=== PATIENT | male | born 1960 | race Caucasian/White ===

== ENCOUNTER 2018-05-04 08:43 | Day surgery (SDC) | payer BC ==
[~2018-05-04] VITALS: Ht 188 cm; Wt 101.6 kg
[~2018-05-04 08:43] MED LIST: DIPH50 PO; ONDA8ODT MM; PRED20 PO; RANI150 PO; RXONDA4ODT MM
[2018-05-04] MEDS ORDERED: PRAV20 PO (09:27)
[2018-05-04] MEDS ORDERED: VALS80 PO (09:27)
== END 2018-05-04 11:56 | disposition home or self-care (01) ==
LOC: ORSCSDS 08:43
PROVIDERS: Student in an Organized Health Care Education/Training Program
PROC: 0SQQ0ZZ Repair Left Toe Phalangeal Joint, Open Approach (ICD-10-PCS; principal; 2018-05-04 10:00)
PROC: 0QBR0ZZ Excision of Left Toe Phalanx, Open Approach (ICD-10-PCS; principal; 2018-05-04 10:00)
DX: M20.42 Other hammer toe(s) (acquired), left foot (principal); M79.675 Pain in left toe(s); L84 Corns and callosities; M89.9 Disorder of bone, unspecified; I10 Essential (primary) hypertension; Z79.899 Other long term (current) drug therapy
CPT/HCPCS: J0690; J1100; J1885; J2250; J2405; J7120

== ENCOUNTER → 2018-06-23 | Outpatient (CLI) | payer BC ==
[~2018-06-23] MED LIST changes: +PRAV20 PO; +VALS80 PO
[2018-06-23 17:10] LABS: BASOPHILS ABSOLUTE AUTO 0.05 K/mm3 (0.00-0.23); BASOPHILS PERCENT AUTO 1 % (0-2); EOSINOPHILS ABSOLUTE AUTO 0.32 K/mm3 (0.00-0.68); EOSINOPHILS PERCENT AUTO 4 % (0-6); Hematocrit 45.6 % (37.0-53.0); Hemoglobin 15.6 g/dL (13.5-17.5); IMMATURE GRAN ABSOLUTE AUTO 0.03 K/mm3 (0.00-0.10); IMMATURE GRAN PERCENT AUTO 0 % (0-1); LYMPHOCYTES ABSOLUTE AUTO 1.99 K/mm3 (0.84-5.20); LYMPHOCYTES PERCENT AUTO 24 % (21-46); MONOCYTES ABSOLUTE AUTO 0.87 K/mm3 (0.16-1.47); MONOCYTES PERCENT AUTO 10 % (4-13); Mean Corpuscular HGB 29.4 pg (26.0-34.0); Mean Corpuscular HGB Conc 34.2 g/dL (31.5-36.5); Mean Corpuscular Volume 86 fL (80-100); Mean Platelet Volume 9.7 fL (9.1-12.4); NEUTROPHILS ABSOLUTE AUTO 5.13 K/mm3 (1.96-9.15); NEUTROPHILS PERCENT AUTO 61 % (41-73); Platelet Count 227 K/mm3 (150-400); RDW Coefficient Variation 13.2 % (11.7-14.2); RDW Standard Deviation 40.8 fL (35.1-46.3); Red Blood Cell Count 5.31 M/mm3 (4.30-5.90); White Blood Cell Count 8.39 K/mm3 (4.00-11.30)
[2018-06-23 17:18] LABS: Alanine Aminotransfer (ALT/SGP 40 U/L (12-78); Albumin/Globulin Ratio 1.1 (0.8-1.8); Alk Phos 58 U/L (40-126); Anion Gap 12 mmol/L (6-16); Aspartate Aminotrans (AST/SGOT 29 U/L (12-37); Bilirubin, Total 0.5 mg/dL (0.1-1.0); Blood Urea Nitrogen 22 mg/dL (8-24); Bun/Creatinine Ratio 18.6 (12.0-20.0); CO2, Blood 25 mmol/L (21-32); Calcium, Blood 9.1 mg/dL (8.5-10.1); Chloride, Blood 104 mmol/L (98-108); Creatinine, Blood 1.18 mg/dL (0.60-1.20); Globulin, Blood 3.7 g/dL (2.2-4.0); Glomerular Filtration Rate >60 (60-); Glucose, Blood 92 mg/dL (70-99); Potassium, Blood 3.9 mmol/L (3.5-5.5); Sodium, Blood 141 mmol/L (136-145); Total Protein, Blood 7.7 g/dL (6.4-8.2); Uric Acid, Blood 6.1 mg/dL (3.5-7.2)
== END | disposition home or self-care (01) ==
LOC: LAB EV 17:02 → LAB SHORT 17:02
PROVIDERS: Physician Assistant
DX: M79.675 Pain in left toe(s) (principal)
CPT/HCPCS: 80053; 84550; 85025; 85651; 86140

== ENCOUNTER 2019-11-19 16:28 | Observation (INO) | payer BC ==
[~2019-11-19] VITALS: Ht 188 cm; Wt 103.0 kg
[2019-11-19 18:36] LABS: BASOPHILS ABSOLUTE AUTO 0.02 K/mm3 (0.00-0.23); BASOPHILS PERCENT AUTO 0 % (0-2); EOSINOPHILS PERCENT AUTO 1 % (0-6); Hemoglobin 15.3 g/dL (13.5-17.5); IMMATURE GRAN ABSOLUTE AUTO 0.04 K/mm3 (0.00-0.10); IMMATURE GRAN PERCENT AUTO 0 % (0-1); LYMPHOCYTES ABSOLUTE AUTO 1.28 K/mm3 (0.84-5.20); LYMPHOCYTES PERCENT AUTO 12 % (21-46); MONOCYTES ABSOLUTE AUTO 1.28 K/mm3 (0.16-1.47); MONOCYTES PERCENT AUTO 12 % (4-13); Mean Corpuscular HGB 29.2 pg (26.0-34.0); Mean Corpuscular Volume 86 fL (80-100); Mean Platelet Volume 10.2 fL (9.1-12.4); NEUTROPHILS ABSOLUTE AUTO 8.36 K/mm3 (1.96-9.15); NEUTROPHILS PERCENT AUTO 75 % (41-73); Platelet Count 191 K/mm3 (150-400); RDW Coefficient Variation 12.5 % (11.7-14.2); RDW Standard Deviation 39.4 fL (35.1-46.3); Red Blood Cell Count 5.24 M/mm3 (4.30-5.90); White Blood Cell Count 11.08 K/mm3 (4.00-11.30)
[2019-11-19 18:48] LABS: Alanine Aminotransfer (ALT/SGP 33 U/L (12-78); Albumin, Blood 3.6 g/dL (3.4-5.0); Albumin/Globulin Ratio 0.9 (0.8-1.8); Alk Phos 58 U/L (50-136); Anion Gap 9 mmol/L (6-16); Aspartate Aminotrans (AST/SGOT 22 U/L (12-37); Bilirubin, Total 0.7 mg/dL (0.1-1.0); Blood Urea Nitrogen 15 mg/dL (8-24); Bun/Creatinine Ratio 15.8 (12.0-20.0); CO2, Blood 21 mmol/L (21-32); Calcium, Blood 8.9 mg/dL (8.5-10.1); Chloride, Blood 107 mmol/L (98-108); Creatinine, Blood 0.95 mg/dL (0.60-1.20); Globulin, Blood 3.8 g/dL (2.2-4.0); Glomerular Filtration Rate >60 (60-); Glucose, Blood 110 mg/dL (70-99); Potassium, Blood 4.4 mmol/L (3.5-5.5); Sodium, Blood 137 mmol/L (136-145); Total Protein, Blood 7.4 g/dL (6.4-8.2)
--- NOTE | 2019-11-20 05:24 | NUR ---
P0T NEW ADMIT THIS SHIFT FOR RIGHT SHOULDER PAIN. PT VSS, SATS >90% ON RA. PAIN MGD PER EMAR, ALT PO AND IV PAIN MEDS W/REP RELIEF. PT REP PAIN MINIMAL THIS AM, REP "IT'S THE BEST IT'S BEEN" PT IS ABLE TO MOVE SHOULDER SLIGHTLY W/O INC IN PAIN. 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 PT UP IN ROOM W/SBA, CAMPBELL WELL. PT CAMPBELL REG PO, NO C/O N/V. ATTENTIVE AT BEDSIDE. PLAN FOR PT/OT EVAL TODAY. WILL CONT TO MONITOR UNTIL REP GIVEN TO ONCOMING RN.
--- NOTE | 2019-11-20 11:45 | NUR ---
DR GARZA IN TO SEE PT.
[2019-11-20] MEDS ORDERED: MIRALAX17 GM PO (12:50)
[2019-11-20] MEDS ORDERED: DOCU100 PO (12:50)
[2019-11-20] MEDS ORDERED: SENN187 PO (12:51)
[2019-11-20] MEDS ORDERED: MORP15ER PO (12:51)
[2019-11-20] MEDS ORDERED: IBUP800 PO (12:51)
--- NOTE | 2019-11-20 13:13 | NUR ---
DISCHARGED DEACTIVATED AND REMOVED HUGS ALARM. CALLED PRESCRIPTION INTO [facility]. REVIEWED DC INSTRUCTIONS; PARENTS VERBALIZED UNDERSTANDING. PT LEFT UNTIT CARRIED BY MOTHER. PARENTS HAD POSSESSIONS AND DC PAPERWORK IN HAND.
--- NOTE | 2019-11-20 13:23 | NUR ---
DISCHARGED IV DC'D. REVIEWED DC INSTRUCTIONS W/PT AND SPOUSE; VERBALIZED UNDERSTANDING. PT LEFT UNIT BY AMBULATION W/POSSESSIONS AND DC INSTRUCTIONS IN HAND.
== END 2019-11-20 13:21 | disposition home or self-care (01) ==
LOC: ER 16:28 → SURS 16:29
PROVIDERS: Emergency Medicine; ADMIT Hospitalist
DX: M75.31 Calcific tendinitis of right shoulder (principal); M19.011 Primary osteoarthritis, right shoulder; I10 Essential (primary) hypertension; Z74.09 Other reduced mobility
CPT/HCPCS: 71045; 73030; 80053; 85025; 93005; 93010; 96361; 96374; 96375; 96376; 97110; 97162; 97165; 97530; 97535; 99285-25; A9270; G0378; J1170; J1885; J2270; J2405; J7030